=== PATIENT | male | born 1985 | race Caucasian/White ===

== ENCOUNTER 2021-06-06 18:30 | Emergency (ER) | payer MEDICAID ==
--- NOTE | 2021-06-06 20:17 | EDM.PDOC ---
<Keny Leahy - Last Filed: 06/07/21 07:27> ED HPI GENERAL MEDICAL PROBLEM - General Chief Complaint: Respiratory Problem Stated Complaint: [facility] Time Seen by Provider: 06/06/21 20:08 - History of Present Illness INITIAL COMMENTS - FREE TEXT/NARRATIVE: 35-year-old male presents to the emergency room with cough fever generally not feeling well. This is all developed in the last 24 hours.. He has had loose stools some nausea no vomiting. His cough is getting worse. Patient has not had the Covid vaccine. Patient is treated for diabetes hypertension. Patient is visiting the area he has a wedding to go to and has been doing some hunting here locally. He is quite short of breath when he tries to do anything at rest he seems to be doing okay. He also has developed some upper abdominal discomfort mostly on the right side. Chest Pain Score (Numeric/FACES): 7 - Related Data Allergies Allergy/AdvReac Type Severity Reaction Status Date / Time No Known Allergies Allergy Verified 06/06/21 18:42 Home Meds: Home Meds Metoprolol Tartrate [Lopressor] 50 mg PO Q12HR 06/06/21 [History] hydrOXYzine HCL [Atarax] 50 mg PO TID 06/06/21 [History] LORazepam [Ativan] 1 mg PO DAILY #18 tablet 06/07/21 [Rx] Ondansetron [Zofran ODT] 4 mg PO Q6H PRN #20 tab.dis 06/07/21 [Rx] Past Medical History Cardiovascular History: Reports: Hypertension Gastrointestinal History: Reports: Diverticulosis Psychiatric History: Reports: Anxiety, Depression Endocrine/Metabolic History: Reports: Diabetes, Type II Other Endocrine/Metabolic History: reports diet controlled Social & Family History - Tobacco Use Years of Tobacco use: 3 Packs/Tins Daily: 0.5 - Caffeine Use Caffeine Use: Reports: Coffee, Energy Drinks, Soda - Alcohol Use Days Per Week of Alcohol Use: 4 Number of Drinks Per Day: 8 Total Drinks Per Week: 32 - Recreational Drug Use Recreational Drug Use: Yes Recreational Drug Type: Reports: Marijuana/Hashish Recreational Drug Use Frequency: Monthly ED ROS GENERAL - Review of Systems Constitutional: Reports: Fever, Malaise, Weakness, Fatigue HEENT: Reports: No Symptoms Respiratory: Reports: Shortness of Breath, Cough Cardiovascular: Reports: Dyspnea on Exertion Endocrine: Reports: No Symptoms GI/Abdominal: Reports: Abdominal Pain (Very mild), Diarrhea, Decreased Appetite. Denies: No Symptoms, Nausea, Vomiting : Reports: No Symptoms Musculoskeletal: Reports: Other (Generalized achiness) Skin: Reports: No Symptoms Neurological: Reports: No Symptoms Psychiatric: Reports: No Symptoms Hematologic/Lymphatic: Reports: No Symptoms Immunologic: Reports: No Symptoms ED EXAM, GENERAL - Physical Exam Exam: See Below Exam Limited By: No Limitations General Appearance: Alert, No Apparent Distress Eye Exam: Bilateral Eye: Normal Inspection Ears: Normal External Exam, Normal Canal, Hearing Grossly Normal, Normal TMs Nose: Normal Inspection, Normal Mucosa, No Blood Throat/Mouth: Normal Inspection, Normal Lips, Normal Teeth, Normal Gums, Normal Oropharynx, Normal Voice, No Airway Compromise Head: Atraumatic, Normocephalic Neck: Normal Inspection, Supple, Non-Tender, Full Range of Motion Respiratory/Chest: No Respiratory Distress, Lungs Clear, Normal Breath Sounds Cardiovascular: Regular Rate, Rhythm, No Edema, No Murmur GI/Abdominal: Normal Bowel Sounds, Soft, Non-Tender Back Exam: Normal Inspection. No: CVA Tenderness (L), CVA Tenderness (R) Extremities: Normal Inspection, No Pedal Edema Neurological: Alert, Oriented, Normal Cognition Skin Exam: Warm, Dry, Intact #1 Interpretation EKG Date: 06/07/21 Rhythm: NSR Rate (Beats/Min): 95 [place]: Normal P-Wave: Present QRS: Normal ST-T: Normal QT: Prolonged (Order line) Comparison: NA - No Prior EKG EKG Interpretation Comments: Abnormal Course - Re-Assessments/Exams Free Text/Narrative Re-Assessment/Exam: 06/06/21 22:23 Vented and influenza negative D-dimer quite elevated with reviewing everything else his bilirubin is 6 and he has some other abnormalities reexamined him he is got some right upper quadrant tenderness he states that this is not usually a problem for him. He has had diverticulitis in the past. We will check a direct bilirubin lipase. And pursue a chest CTA to exclude PE. 06/07/21 01:21 CT of the chest was negative for PE however he has some fatty liver and hepatomegaly. There was also evidence of portal hypertension given recannulization of the umbilical vein and ventral abdominal wall varices the abdominal mesenteric edema and fluid may be related to either acute cholecystitis or acute pancreatitis but thought to be more likely related to a calculus cholecystitis given the gallbladder wall distention and thickening with the pericholecystic fluid. Case was reviewed with Dr. Perez, our surgeon who believes the patient would be better served sent out of town. We have checked with [facility] in [facility] in [place] and [facility] in [place] no beds available case has been reviewed with the [facility] call [facility] who is not optimistic but thinks may be sent might open up in the morning. 06/07/21 07:27 Became short of breath this morning just had a hard time getting comfortable he thinks he is mostly anxious I have ordered him a milligram of Ativan. He has been here on nearly 12 hours I will recheck labs including a lipase and direct bili. His shortness of breath I will also check a EKG and troponin. CTA was negative in the chest yesterday but strongly suggestive of hepatobiliary pathology. I have ordered a ultrasound of the hepatobiliary system. And it looks like we will be able to check a MRCP here this morning approximately 10 AM his urine looks pretty dark this morning despite getting nearly 2 L of fluid last night I will restart LR at 125 an hour after a bolus of 500 cc. I discussed the patient's case with 1 call at [facility] and they will discuss the patient at the morning meeting to see if they can find a bed for him. On our end we have no capability of keeping him. The surgeon believes he is better served to go down the road and we have no beds. This time off shift further care and disposition per Dr. Hastings. Departure - Departure Disposition: Home, Self-Care 01 Clinical Impression: Alcoholic liver disease, Ascites of liver Alcohol intoxication Qualifiers: Complication of substance-induced condition: uncomplicated Qualified Code(s): F10.920 - Alcohol use, unspecified with intoxication, uncomplicated Alcohol withdrawal Qualifiers: Complication of substance-induced condition: uncomplicated Qualified Code(s): F10.230 - Alcohol dependence with withdrawal, uncomplicated - Discharge Information Prescriptions: LORazepam [Ativan] 1 mg PO DAILY #18 tablet Ondansetron [Zofran ODT] 4 mg PO Q6H PRN #20 tab.dis PRN Reason: Nausea\vomiting Referrals: PCP,None [Primary Care Provider] - Forms: ED Department Discharge Additional Instructions: Drink plenty of fluids like water, gatorade or powerade. Try to stop drinking. Your drinking is affecting your liver. Use the ativan as prescribed and zofran. I have sent these prescriptions to [facility] in [facility]. Follow up with your doctor at home. Please return if you are worse. Sepsis Event Note (ED) - Evaluation Sepsis Screening Result: No Definite Risk <Zac Hastings - Last Filed: 06/07/21 12:00> ED ROS GENERAL - Review of Systems Review Of Systems: See Below Course - Vital Signs Last Recorded V/S: Last Vital Signs Temp 99.1 F 06/06/21 18:38 Pulse 103 H 06/06/21 18:38 Resp 20 06/06/21 18:38 BP 120/80 06/06/21 18:38 Pulse Ox 97 06/06/21 18:38 - Orders/Labs/Meds Orders: Active Orders 24 hr Category Date Time Status UA RFX UZIEL AND CULT IF INDIC [URIN] Stat Lab 06/07/21 06:48 Ordered LORazepam [Ativan] Med 06/07/21 11:45 Once 2 mg IVPUSH ONETIME ONE Lactated Ringers [Ringers, Lactated] 1,000 ml Med 06/07/21 03:00 Active IV ASDIRECTED Lactated Ringers [Ringers, Lactated] 1,000 ml Med 06/07/21 07:00 Active IV ASDIRECTED Medication Orders Lactated Ringer's (Ringers, Lactated) 1,000 mls @ 125 mls/hr IV ASDIRECTED DEMETRIUS Last Admin: 06/07/21 08:30 Dose: 125 mls/hr Documented by: DEMETRIUSKAT Lactated Ringer's (Ringers, Lactated) 1,000 mls @ 125 mls/hr IV ASDIRECTED DEMETRIUS Lorazepam (Lorazepam 2 Mg/Ml Sdv) 2 mg IVPUSH ONETIME ONE Stop: 06/07/21 11:46 Labs: Laboratory Tests 06/06/21 06/06/21 06/06/21 Range/Units 19:42 20:32 20:32 WBC 9.56 H (4.23-9.07) K/mm3 RBC 3.36 L (4.63-6.08) M/mm3 Hgb 11.3 L (13.7-17.5) gm/dl Hct 33.6 L (40.1-51.0) % MCV 100.0 H (79.0-92.2) fl MCH 33.6 H (25.7-32.2) pg MCHC 33.6 (32.2-35.5) g/dl RDW Std Deviation 56.1 H (35.1-43.9) fL Plt Count 179 (163-337) K/mm3 MPV 10.7 (9.4-12.3) fl Neut % (Auto) 65.7 (34.0-67.9) % Lymph % (Auto) 22.5 (21.8-53.1) % [place] % (Auto) 8.5 (5.3-12.2) % Eos % (Auto) 1.4 (0.8-7.0) Baso % (Auto) 1.6 H (0.1-1.2) % Neut # (Auto) 6.29 H (1.78-5.38) K/mm3 Lymph # (Auto) 2.15 (1.32-3.57) K/mm3 [place] # (Auto) 0.81 (0.30-0.82) K/mm3 Eos # (Auto) 0.13 (0.04-0.54) K/mm3 Baso # (Auto) 0.15 H (0.01-0.08) K/mm3 Neutrophils % (Manual) (40-60) % Band Neutrophils % (0-10) % Lymphocytes % (Manual) (20-40) % Atypical Lymphs % % Monocytes % (Manual) (2-10) % Eosinophils % (Manual) (0.8-7.0) % Basophils % (Manual) (0.2-1.2) Platelet Estimate Plt Morphology Comment Anisocytosis Macrocytosis Target Cells RBC Morph Comment D-Dimer, Quantitative (0.19-0.50) mg/L Sodium 141 (136-145) mEq/L Potassium 3.2 L (3.5-5.1) mEq/L Chloride 105 (98-107) mEq/L Carbon Dioxide 23 (21-32) mEq/L Anion Gap 16.2 H (5-15) BUN 4 L (7-18) mg/dL Creatinine 0.7 (0.7-1.3) mg/dL Est Cr Clr Drug Dosing 147.29 mL/min Estimated GFR (MDRD) > 60 (>60) mL/min BUN/Creatinine Ratio 5.7 L (14-18) Glucose 114 H (70-99) mg/dL Calcium 7.4 L (8.5-10.1) mg/dL Ferritin (26-388) ng/ml Total Bilirubin 6.3 H (0.2-1.0) mg/dL Direct Bilirubin (0.0-0.2) mg/dl Indirect Bilirubin AST 232 H (15-37) U/L ALT 41 (16-63) U/L Alkaline Phosphatase 291 H (46-116) U/L Lactate Dehydrogenase 450 H (85-227) U/L Troponin I (0.00-0.056) ng/mL C-Reactive Protein 10.4 H* (<1.0) mg/dL Total Protein 7.3 (6.4-8.2) g/dl Albumin 2.2 L (3.4-5.0) g/dl Globulin 5.1 gm/dL Albumin/Globulin Ratio 0.4 L (1-2) Lipase (73-393) U/L Ethyl Alcohol (0.00) gm% Influenza Type A RNA Negative (NEGATIVE) Influenza Type B RNA Negative (NEGATIVE) SARS-CoV-2 RNA (ANJU) Negative (NEGATIVE) 06/06/21 06/06/21 06/06/21 Range/Units 20:32 20:32 20:32 WBC (4.23-9.07) K/mm3 RBC (4.63-6.08) M/mm3 Hgb (13.7-17.5) gm/dl Hct (40.1-51.0) % MCV (79.0-92.2) fl MCH (25.7-32.2) pg MCHC (32.2-35.5) g/dl RDW Std Deviation (35.1-43.9) fL Plt Count (163-337) K/mm3 MPV (9.4-12.3) fl Neut % (Auto) (34.0-67.9) % Lymph % (Auto) (21.8-53.1) % [place] % (Auto) (5.3-12.2) % Eos % (Auto) (0.8-7.0) Baso % (Auto) (0.1-1.2) % Neut # (Auto) (1.78-5.38) K/mm3 Lymph # (Auto) (1.32-3.57) K/mm3 [place] # (Auto) (0.30-0.82) K/mm3 Eos # (Auto) (0.04-0.54) K/mm3 Baso # (Auto) (0.01-0.08) K/mm3 Neutrophils % (Manual) (40-60) % Band Neutrophils % (0-10) % Lymphocytes % (Manual) (20-40) % Atypical Lymphs % % Monocytes % (Manual) (2-10) % Eosinophils % (Manual) (0.8-7.0) % Basophils % (Manual) (0.2-1.2) Platelet Estimate Plt Morphology Comment Anisocytosis Macrocytosis Target Cells RBC Morph Comment D-Dimer, Quantitative 6.29 H (0.19-0.50) mg/L Sodium (136-145) mEq/L Potassium (3.5-5.1) mEq/L Chloride (98-107) mEq/L Carbon Dioxide (21-32) mEq/L Anion Gap (5-15) BUN (7-18) mg/dL Creatinine (0.7-1.3) mg/dL Est Cr Clr Drug Dosing mL/min Estimated GFR (MDRD) (>60) mL/min BUN/Creatinine Ratio (14-18) Glucose (70-99) mg/dL Calcium (8.5-10.1) mg/dL Ferritin 331 (26-388) ng/ml Total Bilirubin 6.3 H (0.2-1.0) mg/dL Direct Bilirubin 5.00 H (0.0-0.2) mg/dl Indirect Bilirubin 1.30 AST (15-37) U/L ALT (16-63) U/L Alkaline Phosphatase (46-116) U/L Lactate Dehydrogenase (85-227) U/L Troponin I (0.00-0.056) ng/mL C-Reactive Protein (<1.0) mg/dL Total Protein (6.4-8.2) g/dl Albumin (3.4-5.0) g/dl Globulin gm/dL Albumin/Globulin Ratio (1-2) Lipase 325 (73-393) U/L Ethyl Alcohol (0.00) gm% Influenza Type A RNA (NEGATIVE) Influenza Type B RNA (NEGATIVE) SARS-CoV-2 RNA (ANJU) (NEGATIVE) 06/06/21 06/07/21 06/07/21 Range/Units 20:32 06:52 06:52 WBC 9.74 H (4.23-9.07) K/mm3 RBC 3.33 L (4.63-6.08) M/mm3 Hgb 11.4 L (13.7-17.5) gm/dl Hct 33.4 L (40.1-51.0) % MCV 100.3 H (79.0-92.2) fl MCH 34.2 H (25.7-32.2) pg MCHC 34.1 (32.2-35.5) g/dl RDW Std Deviation 57.6 H (35.1-43.9) fL Plt Count 177 (163-337) K/mm3 MPV 10.7 (9.4-12.3) fl Neut % (Auto) (34.0-67.9) % Lymph % (Auto) (21.8-53.1) % [place] % (Auto) (5.3-12.2) % Eos % (Auto) (0.8-7.0) Baso % (Auto) (0.1-1.2) % Neut # (Auto) (1.78-5.38) K/mm3 Lymph # (Auto) (1.32-3.57) K/mm3 [place] # (Auto) (0.30-0.82) K/mm3 Eos # (Auto) (0.04-0.54) K/mm3 Baso # (Auto) (0.01-0.08) K/mm3 Neutrophils % (Manual) 61 H (40-60) % Band Neutrophils % 13 H (0-10) % Lymphocytes % (Manual) 16 L (20-40) % Atypical Lymphs % 0 % Monocytes % (Manual) 5 (2-10) % Eosinophils % (Manual) 2 (0.8-7.0) % Basophils % (Manual) 3 H (0.2-1.2) Platelet Estimate Adequate Plt Morphology Comment Normal Anisocytosis 2+ moderate Macrocytosis 2+ moderate Target Cells 2+ moderate RBC Morph Comment Abnormal D-Dimer, Quantitative (0.19-0.50) mg/L Sodium (136-145) mEq/L Potassium (3.5-5.1) mEq/L Chloride (98-107) mEq/L Carbon Dioxide (21-32) mEq/L Anion Gap (5-15) BUN (7-18) mg/dL Creatinine (0.7-1.3) mg/dL Est Cr Clr Drug Dosing mL/min Estimated GFR (MDRD) (>60) mL/min BUN/Creatinine Ratio (14-18) Glucose (70-99) mg/dL Calcium (8.5-10.1) mg/dL Ferritin (26-388) ng/ml Total Bilirubin (0.2-1.0) mg/dL Direct Bilirubin (0.0-0.2) mg/dl Indirect Bilirubin AST (15-37) U/L ALT (16-63) U/L Alkaline Phosphatase (46-116) U/L Lactate Dehydrogenase (85-227) U/L Troponin I < 0.017 (0.00-0.056) ng/mL C-Reactive Protein (<1.0) mg/dL Total Protein (6.4-8.2) g/dl Albumin (3.4-5.0) g/dl Globulin gm/dL Albumin/Globulin Ratio (1-2) Lipase (73-393) U/L Ethyl Alcohol 0.29 (0.00) gm% Influenza Type A RNA (NEGATIVE) Influenza Type B RNA (NEGATIVE) SARS-CoV-2 RNA (ANJU) (NEGATIVE) 06/07/21 06/07/21 Range/Units 06:52 06:52 WBC (4.23-9.07) K/mm3 RBC (4.63-6.08) M/mm3 Hgb (13.7-17.5) gm/dl Hct (40.1-51.0) % MCV (79.0-92.2) fl MCH (25.7-32.2) pg MCHC (32.2-35.5) g/dl RDW Std Deviation (35.1-43.9) fL Plt Count (163-337) K/mm3 MPV (9.4-12.3) fl Neut % (Auto) (34.0-67.9) % Lymph % (Auto) (21.8-53.1) % [place] % (Auto) (5.3-12.2) % Eos % (Auto) (0.8-7.0) Baso % (Auto) (0.1-1.2) % Neut # (Auto) (1.78-5.38) K/mm3 Lymph # (Auto) (1.32-3.57) K/mm3 [place] # (Auto) (0.30-0.82) K/mm3 Eos # (Auto) (0.04-0.54) K/mm3 Baso # (Auto) (0.01-0.08) K/mm3 Neutrophils % (Manual) (40-60) % Band Neutrophils % (0-10) % Lymphocytes % (Manual) (20-40) % Atypical Lymphs % % Monocytes % (Manual) (2-10) % Eosinophils % (Manual) (0.8-7.0) % Basophils % (Manual) (0.2-1.2) Platelet Estimate Plt Morphology Comment Anisocytosis Macrocytosis Target Cells RBC Morph Comment D-Dimer, Quantitative (0.19-0.50) mg/L Sodium 143 (136-145) mEq/L Potassium 3.6 (3.5-5.1) mEq/L Chloride 105 (98-107) mEq/L Carbon Dioxide 23 (21-32) mEq/L Anion Gap 18.6 H (5-15) BUN 4 L (7-18) mg/dL Creatinine 0.7 (0.7-1.3) mg/dL Est Cr Clr Drug Dosing 147.29 mL/min Estimated GFR (MDRD) > 60 (>60) mL/min BUN/Creatinine Ratio 5.7 L (14-18) Glucose 103 H (70-99) mg/dL Calcium 7.5 L (8.5-10.1) mg/dL Ferritin (26-388) ng/ml Total Bilirubin 6.5 H (0.2-1.0) mg/dL Direct Bilirubin 5.00 H (0.0-0.2) mg/dl Indirect Bilirubin AST 229 H (15-37) U/L ALT 46 (16-63) U/L Alkaline Phosphatase 289 H (46-116) U/L Lactate Dehydrogenase (85-227) U/L Troponin I (0.00-0.056) ng/mL C-Reactive Protein (<1.0) mg/dL Total Protein 7.1 (6.4-8.2) g/dl Albumin 2.1 L (3.4-5.0) g/dl Globulin 5.0 gm/dL Albumin/Globulin Ratio 0.4 L (1-2) Lipase 195 (73-393) U/L Ethyl Alcohol (0.00) gm% Influenza Type A RNA (NEGATIVE) Influenza Type B RNA (NEGATIVE) SARS-CoV-2 RNA (ANJU) (NEGATIVE) Meds: Medications Generic Name Dose Route Start Last Admin Trade Name Freq PRN Reason Stop Dose Admin Lactated Ringer's 1,000 mls @ 125 mls/hr 06/07/21 03:00 06/07/21 08:30 Ringers, Lactated IV 125 mls/hr ASDIRECTED DEMETRIUS Administration Lactated Ringer's 1,000 mls @ 125 mls/hr 06/07/21 07:00 Ringers, Lactated IV ASDIRECTED DEMETRIUS Lorazepam 2 mg 06/07/21 11:45 Lorazepam 2 Mg/Ml Sdv IVPUSH 06/07/21 11:46 ONETIME ONE Discontinued Medications Generic Name Dose Route Start Last Admin Trade Name Freq PRN Reason Stop Dose Admin Fentanyl 50 mcg 06/07/21 03:43 06/07/21 04:00 Fentanyl 100 Mcg/2 Ml Sdv IVPUSH 06/07/21 03:44 50 mcg ONETIME ONE Administration Hydromorphone HCl 1 mg 06/07/21 08:22 06/07/21 08:30 Hydromorphone 1 Mg/Ml Syringe IVPUSH 06/07/21 08:23 1 mg ONETIME ONE Administration Lactated Ringer's 500 mls @ 999 mls/hr 06/06/21 22:15 06/06/21 22:28 Ringers, Lactated IV 06/06/21 22:45 999 mls/hr .BOLUS ONE Administration Lactated Ringer's 500 mls @ 999 mls/hr 06/07/21 06:49 06/07/21 07:17 Ringers, Lactated IV 06/07/21 07:19 999 mls/hr .BOLUS ONE Administration Lorazepam 1 mg 06/06/21 22:13 06/06/21 22:28 Lorazepam 2 Mg/Ml Sdv IVPUSH 06/06/21 22:14 1 mg ONETIME ONE Administration Lorazepam 1 mg 06/07/21 06:50 06/07/21 07:17 Lorazepam 2 Mg/Ml Sdv IVPUSH 06/07/21 06:51 1 mg ONETIME ONE Administration Potassium Chloride 40 meq 06/06/21 22:09 06/06/21 22:28 Potassium Chloride 20 Meq Tab.Er PO 06/06/21 22:10 40 meq ONETIME ONE Administration - Re-Assessments/Exams Free Text/Narrative Re-Assessment/Exam: 06/07/21 11:[address] Leahy. The patient's repeat labs have not changed much. His US shows echogenic liver compatible with fatty infiltration. No additional abnormality is seen but US is less than optimal due to body habitus. The MRCP appears normal. Gallbladder contains no filling defects to indicate gallstones. No gallbladder wall thickening is seen. Ascites is seen within the abdomen. Fatty infiltration within the liver. Small 2cm cyst is noted within the right kidney. The patient is shaking now. I feel he is withdrawing from alcohol. He does admit to drinking daily. He says he has but back lately. I will give him a dose of ativan now and a prescription for more and zofran. I do not think he needs to be admitted. He has liver disease from alcohol. I will discharge him home. Departure - Departure Time of Disposition: 12:00 Condition: Good - Discharge Information *PRESCRIPTION DRUG MONITORING PROGRAM REVIEWED*: Not Applicable *COPY OF PRESCRIPTION DRUG MONITORING REPORT IN PATIENT KIMBERLEE: Not Applicable - My Orders Last 24 Hours: My Active Orders 06/07/21 11:45 LORazepam [Ativan] 2 mg IVPUSH ONETIME ONE - Assessment/Plan Last 24 Hours: My Active Orders 06/07/21 11:45 LORazepam [Ativan] 2 mg IVPUSH ONETIME ONE
[2021-06-06 20:19] LABS: CORONAVIRUS COVID-19 NAA NEGATIVE (NEGATIVE)
[2021-06-06] MEDS ORDERED: Potassium Chloride 20 MEQ Tab.ER PO ONE (22:09)
[2021-06-06] MEDS ORDERED: LORazepam 2 MG/ML SDV IVPUSH ONE (22:13)
[2021-06-06] MEDS ORDERED: Lactated Ringers 500 ML IV ONE (22:15)
[2021-06-07] MEDS ORDERED: Lactated Ringers 1,000 ML IV SCH ×2 (03:00→07:00)
[2021-06-07] MEDS ORDERED: fentaNYL 100 MCG/2 ML SDV IVPUSH ONE (03:43)
--- NOTE | 2021-06-07 06:39 | CR ---
Chest: Portable view of the chest was obtained. Comparison: No prior chest imaging is available. Heart size and mediastinum are normal. Lungs are clear with no acute parenchymal change. Bony structures show nothing acute. Impression: 1. Nothing acute is seen on portable chest x-ray. Diagnostic code #1
[2021-06-07] MEDS ORDERED: Lactated Ringers 500 ML IV ONE (06:49)
[2021-06-07] MEDS ORDERED: LORazepam 2 MG/ML SDV IVPUSH ONE ×2 (06:50→11:45)
--- NOTE | 2021-06-07 07:13 | CT ---
CT chest Technique: Multiple axial sections were obtained through the chest. Intravenous contrast was utilized. Study has been performed as a pulmonary angiogram protocol. Comparison: Prior chest x-ray performed on the same day (8:58 PM). Findings: Pulmonary arteries are not optimally opacified. No filling defects are seen within the main or segmental branches. Smaller subsegmental pulmonary emboli could easily be missed. Thoracic aorta shows mild atherosclerotic calcification with no aneurysm. Mediastinum shows no adenopathy. No hilar adenopathy is seen. No pericardial thickening is seen. Severe fatty infiltration is seen throughout the liver. Gallbladder contains no shadowing gallstones. Mild inflammatory change is suggested around the gallbladder. Mild amount of fluid is seen within the abdomen compatible with mild ascites. There is recannulization of the umbilical vein which is suspicious for possible portal hypertension. Lung window settings were reviewed. No acute parenchymal findings are seen. Bone window settings were reviewed. No acute osseous finding is appreciated. Several old healed rib fractures are noted within the left chest. Impression: 1. Suboptimal opacification of the pulmonary arteries with no findings of pulmonary embolism seen within the main or segmental branches. Smaller subsegmental pulmonary emboli could be missed. 2. Liver is enlarged with diffuse fatty infiltration. Mild inflammatory change is seen around the gallbladder and difficult to exclude infection. Please correlate if patient's findings support gallbladder ultrasound. 3. Findings suspicious for mild pulmonary hypertension. 4. Minimal ascites is seen within the abdomen. Diagnostic code #3 I agree with preliminary report from [facility], finalized on 06/07/21, 12:15 AM CDT, code 1
--- NOTE | 2021-06-07 08:04 | US ---
Limited abdominal ultrasound: Multiple real-time images were obtained of the upper right abdomen. Comparison: No prior abdominal ultrasound is available. Technologist's note: Suboptimal exam due to body habitus. Findings: Liver is echogenic which makes evaluation difficult. No discrete focal abnormality is appreciated. No visualization of the biliary ducts is available. Gallbladder contains no gallstones. No gallbladder wall thickening is seen. Proximal aorta shows no discrete aneurysm. Pancreas is obscured by bowel gas. Inferior vena cava is not well seen. Main portal vein shows hepatopedal flow but is otherwise not well seen. Impression: 1. Echogenic liver compatible with fatty infiltration. 2. No additional abnormality is seen but ultrasound is less than optimal due to body habitus. Diagnostic code #2
[2021-06-07] MEDS ORDERED: HYDROmorphone 1 MG/ML Syringe IVPUSH ONE (08:22)
--- NOTE | 2021-06-07 11:03 | MR ---
MRI abdomen with MRCP Technique: Multiple axial and coronal images were obtained of the abdomen. MRCP images were also obtained. Comparison: Prior right upper quadrant abdominal ultrasound performed earlier on the same day (7:22 AM). Findings: CHD and CBD appear normal in size. No filling defects are seen to indicate a stone. Gallbladder contains no filling defects to indicate gallstones. No gallbladder wall thickening is seen. There is a mild amount of fluid being seen within the abdomen compatible with ascites. Liver shows no focal abnormality but is fatty infiltrated. Kidneys show a cyst on the right side measuring 2.0 cm. Pancreas is not optimally seen due to motion artifact. Impression: 1. MRCP appears normal. Gallbladder contains no filling defects to indicate gallstones. No gallbladder wall thickening is seen. 2. Ascites is seen within the abdomen. 3. Fatty infiltration within the liver. 4. Small 2.0 cm cyst is noted within the right kidney. Diagnostic code #3
[2021-06-07] MEDS ORDERED: Ondansetron 4 MG/2 ML SDV IVPUSH ONE (11:58)
== END 2021-06-07 12:45 | disposition home or self-care (01) ==
LOC: JD.ED 18:30
DX: K70.31 Alcoholic cirrhosis of liver with ascites (principal); F10.239 Alcohol dependence with withdrawal, unspecified; I10 Essential (primary) hypertension; E11.9 Type 2 diabetes mellitus without complications; Z72.0 Tobacco use; Z20.822 Contact with and (suspected) exposure to COVID-19
CPT/HCPCS: 0240U; 36415; 71045; 71275; 74181; 76705; 80053; 80307; 82247; 82248; 82728; 83615; 83690; 84484; 85007; 85025; 85027; 85379; 86140; 93005; 96374; 96375; 96376; 99285; A9270; J1170; J2060; J2405; J3010; J7120